=== PATIENT | female | born 1965 | race Caucasian/White ===

== ENCOUNTER 2023-11-15 20:50 | Emergency (ER) | payer BC, SELFPAY ==
[2023-11-15 20:53] VITALS: BP 129/78
--- NOTE | 2023-11-15 22:13 | ED.GENMED ---
History of Present Illness
General
Chief Complaint: Skin Surface Trauma
Time Seen by Provider: 11/15/23 21:53
Travel History
Have you had any contact with someone who has COVID-19?: No
Do you have any symptoms of coronavirus? Fever > 100 degrees, chills, cough, shortness of breath, sore throat, loss of taste or smell, muscle aches, or headache?: No
History of Present Illness
History of Present Illness:
58-year-old female presents to the emergency room complaining of injury to her left thumb. Patient states she was try to take her dog out for a walk and evidently the dog did not want to go for a walk. Dog bit her left thumb causing a skin
tear/laceration. No other injuries. Unknown last tetanus. Dog's immunizations are up-to-date.
Phy Exam
Physical Exam
Physical Exam:
General: Awake, Alert, Oriented X3. No acute distress.
Vitals: unremarkable
Head: Atraumatic
Eyes: Pupils equal, EOMI
Throat: Airway intact, no exudates
Neck: Trachea midline
Neuro: Nonfocal
Skin: Warm, dry, no rash
Extremities: pulses equal b/l, no edema, flap laceration noted over the palmar surface of the distal phalanx left thumb
Course
Orders/Labs/Results
Orders:
Orders
11/15/23 22:13
Amoxicillin 875 mg/Clav 125 mg [Augmentin 875 mg/125 mg] 1 tablet PO NOW STA
11/15/23 22:16
Tetanus/Diphth/Acelpertussis [Adacel] 0.5 ml IM .ONCE ONE
Vital Signs
Initial and Last Documented VS:
Initial Vital Signs
Temp Pulse Resp BP Pulse Ox
98.5 F 84 18 129/78 95
11/15/23 20:53 11/15/23 20:53 11/15/23 20:53 11/15/23 20:53 11/15/23 20:53
Last Documented Vital Signs
Temp Pulse Resp BP Pulse Ox
98.5 F 77 18 103/71 99
11/15/23 20:53 11/15/23 22:32 11/15/23 20:53 11/15/23 22:32 11/15/23 22:32
MDM/Problems Addressed
Differential Diagnosis Includes:
Animal bite, laceration
MDM/Problems Addressed:
Given the patient suffered an injury from an animal bite the wound was not sutured. We did approximated with Steri-Strips. Patient will be covered with Augmentin. Tetanus updated.
*Critical Care Note
Total Time (30-74mins, 75-104mins- exclusive of procedures): Not Applicable
ED Attending Note
-
Portions of this chart may have been created with voice recognition software.� Occasional wrong word or��sound alike� substitutions may have occurred due to the inherent limitations of voice recognition software.
Discharge Plan
Departure
Patient Disposition: Home (Routine Discharge)
Date of Disposition: 11/15/23
Time of Disposition: 22:13
Patient with high blood pressure during this ER visit?: No
Condition: Good
Discharge Problem:
Laceration of thumb, Dog bite
Instructions: Wound Care (DC), Animal Bites ED
Prescriptions:
New
amoxicillin-pot clavulanate 875-125 mg tablet
1 tab PO BID Qty: 10 0RF
Activity Restrictions/Additional Instructions:
keep dressing intact for the next 2 days then you can gently wash.
Interventions
Interventions:
*Risk Screen - Suicide Last Done: 11/15/23 21:47
*General Assessment Last Done: 11/15/23 21:47
*Neglect/Abuse Screening Last Done: 11/15/23 21:47
*ED COVID-19 Vaccine History Last Done: 11/15/23 21:47
*Nursing Disposition Last Done: 11/15/23 22:32
ED-Skin Assessment Last Done: 11/15/23 21:44
Discharge Date and Time
Discharge Date/Time: 11/15/23 22:33
[2023-11-15] MEDS: AUGMENTIN 875 MG/125 MG 1 TABLET PO (22:20)
[2023-11-15] MEDS: ADACEL 0.5 ML IM (22:21)
[2023-11-15 22:30] VITALS: BP 103/71
[2023-11-15 22:32] VITALS: BP 103/71
== END 2023-11-15 22:33 | disposition home or self-care (01) ==
LOC: EMR 20:50
PROVIDERS: EMERGENCY PHYSICIAN Emergency Medicine; FAMILY PHYSICIAN Internal Medicine
DX: S61.052A Open bite of left thumb without damage to nail, initial encounter (principal); W54.0XXA Bitten by dog, initial encounter; Z23 Encounter for immunization
CPT/HCPCS: 99283; 90471; 90715

== ENCOUNTER → 2024-05-16 13:40 | Outpatient (REF) | payer BC, SELFPAY | LOC: WDC 13:40 | PROVIDERS: ATTENDING PHYSICIAN Obstetrics & Gynecology Gynecology; FAMILY PHYSICIAN Internal Medicine | DX: Z12.31 Encounter for screening mammogram for malignant neoplasm of breast (principal) | CPT/HCPCS: 77063; 77067 ==

== ENCOUNTER 2025-02-12 06:18 | Day surgery (SDC) | payer BC, SELFPAY | END 2025-02-12 12:25 | disposition home or self-care (01) | LOC: GI 06:18 | PROVIDERS: ATTENDING PHYSICIAN Specialist | DX: Z12.11 Encounter for screening for malignant neoplasm of colon (principal); K63.5 Polyp of colon; K57.30 Diverticulosis of large intestine without perforation or abscess without bleeding | CPT/HCPCS: 45380; 88305 ==

== ENCOUNTER → 2025-06-10 13:53 | Outpatient (REF) | payer BC, SELFPAY | LOC: WDC 13:53 | PROVIDERS: ATTENDING PHYSICIAN Obstetrics & Gynecology Gynecology; FAMILY PHYSICIAN Family Medicine | DX: Z12.31 Encounter for screening mammogram for malignant neoplasm of breast (principal) | CPT/HCPCS: 77063; 77067 ==